=== PATIENT | male | born 1990 | race Asian ===

== ENCOUNTER 2022-11-11 02:13 | Observation (INO) ==
[2022-11-11] MEDS ORDERED: LaCOSAMide VIAL 200 MG in NS 0.9% 50 ML 50 ML IV ONE (02:46)
[2022-11-11 02:54] LABS: ABS Eosinophils 0.1 10^3/ul (0-0.6); ABS Monocytes 0.4 10^3/ul (0-0.8); ABS Neutrophils 4.3 10^3/ul (1.5-7.7); Eosinophil % 2.4 %; Hematocrit 42 % (42-52); Hemoglobin 14.2 g/dL (14.0-18.0); Lymphocyte % 17.6 %; Mean Corpuscular HGB Conc 34 g/dL (31-36); Mean Corpuscular Hemoglobin 29 pg (27-31); Mean Corpuscular Volume 85 fL (80-94); Mean Platelet Volume 7.6 fL (7.4-10.4); Nucleated Red Blood Cells % 0.1; Platelet Count 159 10^3/uL (150-450); Red Blood Count 4.97 10^6 /uL (4.18-5.48); Red Cell Distribution Width 14 % (10-15)
[2022-11-11 03:40] LABS: Albumin 3.7 g/dL (3.2-5.2); Albumin/Globulin Ratio 1.9 (1-3); Calcium 7.9 mg/dL (8.6-10.3); Magnesium 1.9 mg/dL (1.9-2.7); Potassium 3.5 mmol/L (3.5-5.0); Total Bilirubin 0.5 mg/dL (0.2-1.0); Total Protein 5.7 g/dL (6.4-8.9); eGFR CKD-EPI 91.6 (>60)
[2022-11-11] MEDS ORDERED: NS 0.9% 1000 ml BAG 1,000 ML IV SCH (04:30)
[2022-11-11] MEDS ORDERED: Potassium EFFERVES 25 meq TAB PO ONE (09:00)
[2022-11-11 13:21] LABS: Calcium 8.9 mg/dL (8.6-10.3); eGFR CKD-EPI 91.6 (>60)
[2022-11-11 16:01] VITALS: BP 125/77
[2022-11-11] MEDS ORDERED: LEVETIRACETAM 750 MG PO SCH (21:00)
== END 2022-11-11 19:15 | disposition home or self-care (01) ==
LOC: EDHOLD 02:13 → ED 02:13 → SUATTDRO 04:24 → MED 06:01
PROVIDERS: ADMIT Internal Medicine; ATTEND Internal Medicine